=== PATIENT | male | born 1990 | race Two or more races ===

== ENCOUNTER 2024-05-05 11:04 | Emergency (ER) | payer OTHER ==
[~2024-05-05] VITALS: Ht 172.7 cm; Wt 92.0 kg
[2024-05-05 11:42] VITALS: BP 125/82; PULSE 75; RESP 18; TEMP 97.6; O2SAT 96
[2024-05-05] MEDS: KETOROLAC TROMETH 60MG/2ML VIAL IM ONE (11:52)
== END 2024-05-05 12:06 | disposition home or self-care (01) ==
LOC: ER 11:04
DX: S83.8X1A Sprain of other specified parts of right knee, initial encounter (principal); W01.0XXA Fall on same level from slipping, tripping and stumbling without subsequent striking against object, initial encounter; Y93.89 Activity, other specified; Y92.89 Other specified places as the place of occurrence of the external cause; Y99.8 Other external cause status
CPT/HCPCS: 96372; 99283; J1885